=== PATIENT | male | born 1975 | race Hispanic/Latino ===

== ENCOUNTER 2019-08-05 12:56 | Emergency (ER) | payer SELFPAY ==
[~2019-08-05] VITALS: Ht 172.7 cm; Wt 99.8 kg
--- NOTE | 2019-08-05 16:15 | Diagnostic Imaging Report ---
EXAMINATION: RIBS UNILAT W/CXR INDICATION: Left anterior chest wall pain, trauma COMPARISON: None FINDINGS: LINES/TUBES:None LUNGS:The lungs are well-inflated. No focal consolidation or pulmonary edema. PLEURA:No pleural effusion or pneumothorax. MEDIASTINUM:The cardiomediastinal silhouette appears normal in size and shape. BONES/SOFT TISSUES:No displaced rib fractures. ABDOMEN:No free air under the diaphragm. IMPRESSION: No displaced rib fractures. No focal pneumonia or pulmonary edema. Signed by: Cristian Sibley MD on 08/05/2019 4:11 PM
[2019-08-05] MEDS ORDERED: TYLENOL WITH C1 EACH PO (16:35)
[2019-08-05] MEDS ORDERED: CYCLOBENZAPRINE5 MG PO (16:35)
[2019-08-05 17:05] VITALS: BP 168/91
== END 2019-08-05 17:06 | disposition home or self-care (01) ==
LOC: ER 12:56
DX: S20.212A Contusion of left front wall of thorax, initial encounter (principal); V43.53XA Car driver injured in collision with pick-up truck in traffic accident, initial encounter; Y92.488 Other paved roadways as the place of occurrence of the external cause; I10 Essential (primary) hypertension; G47.30 Sleep apnea, unspecified
CPT/HCPCS: 71101; 99283

== ENCOUNTER 2021-10-27 08:35 | Emergency (ER) | payer MEDICARE, OTHER ==
[~2021-10-27] VITALS: Ht 172.7 cm; Wt 101.3 kg
[~2021-10-27 08:35] MED LIST: AMITRIPTYLINE H10 MG PO; BELBUCA600 MCG PO; CYCLOBENZAPRINE5 MG PO; HYDROCODON-ACE1 EA12 PO; PREGNYL10000 UNIT INJ; TYLENOL WITH C1 EACH PO; ZOLOFT100 MG PO
[2021-10-27] MEDS ORDERED: IBUPROFEN IB200 MG PO (08:54)
[2021-10-27] MEDS ORDERED: TRAZODONE HCL100 MG PO (08:57)
[2021-10-27] MEDS ORDERED: ATORVASTATIN CA20 MG PO (08:57)
== END 2021-10-27 09:06 | disposition home or self-care (01) ==
LOC: FSED 08:50
DX: S63.501A Unspecified sprain of right wrist, initial encounter (principal); W19.XXXA Unspecified fall, initial encounter; Y93.01 Activity, walking, marching and hiking; Y92.89 Other specified places as the place of occurrence of the external cause; I10 Essential (primary) hypertension; G47.30 Sleep apnea, unspecified; M54.9 Dorsalgia, unspecified; G89.29 Other chronic pain
CPT/HCPCS: 99283

== ENCOUNTER → 2021-10-30 | Day surgery (SDC) | payer MEDICARE, OTHER ==
[2021-10-27 08:21] LABS: BASOPHILS # (AUTO) 0.1 (0.0-0.1); BASOPHILS % 0.7 % (0.0-1.0); EOSINOPHILS # (AUTO) 0.6 (0.0-0.4); EOSINOPHILS % 6.7 % (0.0-6.0); HEMATOCRIT 48.3 % (38.2-49.6); HEMOGLOBIN 15.5 g/dL (14.0-18.0); LYMPHOCYTES # (AUTO) 3.4 (1.0-3.2); LYMPHOCYTES % 36.2 % (18.0-39.1); MEAN CORPUSCULAR HEMOGLOBIN 28.2 pg (28-32); MEAN CORPUSCULAR HGB CONC 32.1 g/dL (31-35); MEAN CORPUSCULAR VOLUME 87.8 fL (81-99); MONOCYTES # (AUTO) 0.8 (0.2-0.8); MONOCYTES % 8.9 % (4.4-11.3); NEUTROPHILS # (AUTO) 4.4 (2.1-6.9); NEUTROPHILS % 47.1 % (38.7-80.0); PLATELET COUNT 311 x10e3/uL (140-360); RED CELL DISTRIBUTION WIDTH 13.5 % (11.7-14.4)
[2021-10-27 09:19] LABS: ANION GAP 10.9 mmol/L (8-16); CALCIUM 9.7 mg/dL (8.4-10.2); CREATININE, SERUM 1.14 mg/dL (0.72-1.25); POTASSIUM 3.9 mmol/L (3.5-5.1)
[~2021-10-30] MED LIST changes: +ATORVASTATIN CA20 MG PO; +BUPIVACAINE 0.25% 30ML SDV ONE; +DEXAMETHASONE SOD PHOS INJ 4 MG/ML SDV ONE; +FENTANYL CITRATE/PF 100MCG/2 ML INJ ONE; +HYDROCODONE/APAP 7.5MG-325MG 1 EA TAB ONE; +IBUPROFEN IB200 MG PO; +LIDOCAINE HCL 2% LOCAL INJ 5 ML SDV VIAL INJ ONE; +MIDAZOLAM HCL 2 MG/2 ML VIAL ONE; +ONDANSETRON HCL INJ 2MG/ML 2ML 2 MG/ML VIAL ONE; +POVIDONE IODINE 0.05% 0.05 % ML PO ONE; +PROPOFOL IV EMULSION 10 MG/ML 20 ML VIAL ONE; +SEVOFLURANE INHAL SOLN 250 ML PEN BTL ONE; +TRAZODONE HCL100 MG PO
[2021-10-30 11:00] VITALS: BP 117/63
== END | disposition home or self-care (01) ==
LOC: OR 06:30
PROVIDERS: ATTEND Surgery
DX: K42.0 Umbilical hernia with obstruction, without gangrene (principal); G47.33 Obstructive sleep apnea (adult) (pediatric); G57.93 Unspecified mononeuropathy of bilateral lower limbs; I45.10 Unspecified right bundle-branch block; E66.9 Obesity, unspecified; F41.9 Anxiety disorder, unspecified; F32.A Depression, unspecified; Z01.810 Encounter for preprocedural cardiovascular examination; Z01.812 Encounter for preprocedural laboratory examination; Z20.822 Contact with and (suspected) exposure to COVID-19; Z79.899 Other long term (current) drug therapy
CPT/HCPCS: 36415; 49587; 80048; 85025; 93005; C1781; J3010; U0002; J1100; J2001; J2250; J2405